=== PATIENT | male | born 1985 | race Caucasian/White ===

== ENCOUNTER 2019-04-30 17:01 | Outpatient (CLI) | payer BC ==
--- NOTE | 2019-04-30 17:22 | RAD ---
Chest 2 views HISTORY: Chest pain. FINDINGS: Cardiac silhouette and pulmonary vasculature are unremarkable. Mediastinum is midline. No c onfluent airspace consolidation, pneumothorax, or pleural fluid. Postoperative changes right shoulder. IMPRESSION: No active cardiopulmonary abnormalities are demonstrated.
== END 2019-04-30 17:02 | disposition home or self-care (01) ==
LOC: ER/OP 17:01
PROVIDERS: ATTEND Family Medicine
DX: R07.9 Chest pain, unspecified (principal)
CPT/HCPCS: 71046